=== PATIENT | female | born 1965 | race Caucasian/White ===

== ENCOUNTER → 2017-05-29 | Outpatient (CLI) | payer BC | LOC: RAH 10:39 | PROVIDERS: ATTEND Internal Medicine Medical Oncology | DX: R59.1 Generalized enlarged lymph nodes (principal) | CPT/HCPCS: 76536 ==

== ENCOUNTER → 2017-11-17 | Outpatient (CLI) | payer BC | END | disposition home or self-care (01) | LOC: RAH 11:00 | PROVIDERS: ATTEND Internal Medicine Medical Oncology | DX: Z85.850 Personal history of malignant neoplasm of thyroid (principal); I10 Essential (primary) hypertension | CPT/HCPCS: 76536 ==

== ENCOUNTER → 2018-11-23 | Outpatient (CLI) | payer BC | END | disposition home or self-care (01) | LOC: RAH 12:40 | PROVIDERS: ATTEND Internal Medicine Endocrinology, Diabetes & Metabolism | DX: C73 Malignant neoplasm of thyroid gland (principal) | CPT/HCPCS: 76536 ==

== ENCOUNTER 2018-12-25 05:59 | Day surgery (SDC) | payer BC ==
[~2018-12-25] VITALS: Ht 165.1 cm; Wt 80.7 kg
[~2018-12-25 05:59] MED LIST: CALC600T12 PO; HYDR25TA PO; LEVO88TA4 PO; LISI10TA7 PO; METO25TA6 PO; VITAMIN D
[2018-12-25] MEDS ORDERED: SODIUM CHLORIDE 0.9% 1000ML 1,000 ML IV ONE (06:30)
[2018-12-25 07:34] VITALS: BP 122/86
[2018-12-25] MEDS ORDERED: PROPOFOL 10 MG/ML 20ML VIAL IV ONE (08:31)
[2018-12-25 08:40] VITALS: BP 132/81
[2018-12-25 08:45] VITALS: BP 126/81
[2018-12-25 08:50] VITALS: BP 125/88
== END 2018-12-25 09:00 | disposition home or self-care (01) ==
LOC: DAH 05:59 → ENDO 05:59
PROVIDERS: ATTEND Internal Medicine
DX: Z12.11 Encounter for screening for malignant neoplasm of colon (principal); D12.2 Benign neoplasm of ascending colon; D12.5 Benign neoplasm of sigmoid colon; K57.30 Diverticulosis of large intestine without perforation or abscess without bleeding; K64.0 First degree hemorrhoids; E03.9 Hypothyroidism, unspecified; I10 Essential (primary) hypertension; Z90.710 Acquired absence of both cervix and uterus; Z90.89 Acquired absence of other organs; Z88.1 Allergy status to other antibiotic agents; Z80.0 Family history of malignant neoplasm of digestive organs; Z85.850 Personal history of malignant neoplasm of thyroid; Z79.899 Other long term (current) drug therapy
CPT/HCPCS: 45380; 45385; A4215; A4221; A4222; A4223; A4606; A4615; A4663; J2704; J7030

== ENCOUNTER → 2019-08-23 | Outpatient (CLI) | payer BC | END | disposition home or self-care (01) | LOC: RAH 10:37 | PROVIDERS: ATTEND Internal Medicine Endocrinology, Diabetes & Metabolism | DX: C73 Malignant neoplasm of thyroid gland (principal) ==

== ENCOUNTER → 2023-03-31 | Outpatient (CLI) | payer BC ==
[~2023-03-31] MED LIST changes: +CALC-1125 PO; -CALC600T12 PO; +LISI10TA24 PO; -LISI10TA7 PO
== END | disposition home or self-care (01) ==
LOC: RAH 11:07
PROVIDERS: ATTEND Internal Medicine Endocrinology, Diabetes & Metabolism
DX: C73 Malignant neoplasm of thyroid gland (principal); E04.2 Nontoxic multinodular goiter; Z98.890 Other specified postprocedural states
CPT/HCPCS: 76536

== ENCOUNTER 2024-02-13 12:21 | Emergency (ER) | payer BC ==
[~2024-02-13] VITALS: Ht 165.1 cm; Wt 84.4 kg
--- NOTE | 2024-02-13 12:38 | ERN ---
ED Note History of Present Illness Stated Complaint: LEG PAIN Chief Complaint: Lower Extremity Pain/Injury Time Seen by MD: 12:32 Dictation: PATIENT IS A 58-YEAR-OLD FEMALE HERE WITH PAIN SWELLING AND ECCHYMOSIS TO THE RIGHT CALF AND RIGHT ANTERIOR PROXIMAL TIBIAL AREA ONSET LAST WEEK. SHE STATES SHE WAS ON A STEP SO WHEN SHE FELL ON HER TIBIA AND LOWER LEG CAUSING A SEVERE ABRASION AND THEN THE BRUISING. SHE STATES SHE HAS BEEN ABLE TO AMBULATE WITH PAIN FOR A WEEK, SAW HER PRIMARY CARE DOCTOR TODAY WHO SENT HER TO [facility] [place] TO RULE OUT A FRACTURE VERSUS DVT. SHE DENIES ANY NEED FOR PAIN MEDICATION AT THIS TIME. SHE IS AMBULATORY WITH ANTALGIC GAIT. DISTAL NEUROVASCULAR CMS INTACT. Allergies: Coded Allergies: No Known Drug Allergies (Unverified Allergy, Unknown, 02/13/24) Home Meds Reported Medications [Vitamin D] No Conflict Check 12/24/18 Calcium Carbonate (Calcium) 600 Mg Tablet, 600 MG PO TID, TAB 12/24/18 Lisinopril (Lisinopril) 10 Mg Tablet, 10 MG PO DAILY, TAB 12/24/18 Hydrochlorothiazide (Hydrochlorothiazide) 25 Mg Tablet, 12.5 MG PO DAILY, TAB 12/24/18 Levothyroxine Sodium (Synthroid) 88 Mcg Tablet, 88 MCG PO DAILY, TAB 12/24/18 Metoprolol Tartrate (Metoprolol Tartrate) 25 Mg Tablet, 25 MG PO BID, TAB 12/24/18 Past Medical History Past Medical History: Cancer, Hypertension, Hypothyroid, Other Additional Past Medical Hx: RT BREAST, THYROID CA Surgical History: None PSYCH History: no pertinent psych hx History: Not Applicable RN Note Reviewed/Agreed w/PFSH: Yes Review of System Dictation CONSTITUTIONAL: NEGATIVE EXCEPT FOR HPI HEAD/FACE: NEGATIVE EXCEPT FOR HPI EENT: NEGATIVE EXCEPT FOR HPI RESPIRATORY: NEGATIVE EXCEPT FOR HPI GASTROINTESTINAL/ABDOMINAL: NEGATIVE EXCEPT FOR HPI GENITOURINARY: NEGATIVE EXCEPT FOR HPI MUSCULOSKELETAL: NEGATIVE EXCEPT FOR HPI RIGHT ANTERIOR TIBIAL PAIN SWELLING ECCHYMOSIS INTEGUMENTARY: NEGATIVE EXCEPT FOR HPI NEUROLOGICAL/PSYCH: NEGATIVE EXCEPT FOR HPI HEMATOLOGIC/LYMPHATIC: NEGATIVE EXCEPT FOR HPI ALL SYSTEMS NEGATIVE, EXCEPT NOTED ABOVE. 13 POINT REVIEW OF SYSTEMS ASSESSED AND ALL NEGATIVE EXCEPT FOR ABOVE. Initial Vital Sign VS Vital Signs Date Time Temp Pulse Resp B/P (MAP) Pulse Ox O2 Delivery O2 Flow Rate FiO2 02/13/24 12:26 98.2 86 18 155/94 98 02/13/24 12:36 Room Air* 0 21 Physical Exam Dictation VITAL SIGNS REVIEWED GENERAL APPEARANCE: ALERT, ORIENTED X 3, MILDACUTE DISTRESS, WELL DEVELOPED, NOURISHED. PATIENT REFUSED P.R.N. ANALGESIA HEAD AND FACE: NON-TRAUMATIC. EYES: PERRL, PINK CONJUNCTIVAS, EYELID NO TRAUMA, ANTERIOR CHAMBER WITH ARCUS SENILIS. EARS: PINNAS INTACT AND NO SIGNS OF TRAUMA OR ERYTHEMA EAR CANALS CLEAR AND NO DISCHARGE TM NO ERYTHEMA NOSE: NO DISCHARGE, NO BLEEDING. OROPHARYNX: MOUTH NORMAL, TONGUE PINK, PHARYNX CLEAR,NO ERYTHEMA, TONSILS NO EXUDATES, NO ABSCESSES NOTED, MUCOUS MEMBRANE MOIST NECK: SUPPLE, NON-TENDER, NO THYROMEGALY, NO MASSES, NO JVD, NO BRUITS BREAST:DEFERRED CHEST:NO TENDERNESS, NO CREPITUS, NO PARADOXICAL MOVEMENT, NO RETRACTIONS LUNGS:CLEAR, WELL-VENTILATED, SYMMETRIC, NO RALES, NO WHEEZING, NO RHONCHI, NO STRIDOR, GOOD BREATH SOUNDS BILATERALLY HEART: REGULAR RATE, REGULAR RHYTHM, NO MURMUR, NO GALLOPS VASCULAR: NO PERIPHERAL EDEMA, ABDOMEN: SOFT, POSITIVE BOWEL SOUNDS, NONDISTENDED, NO GUARDING, NONTENDER, NO REBOUND, NO MASSES NO HEPATOMEGALY, NO SPLENOMEGALY, NO LUCERO'S SIGN, NO HERNIAS. RECTAL: DEFERRED GENITAL: DEFERRED NEUROLOGICAL: NORMAL SPEECH, MOTOR FUNCTION INTACT, SENSORY FUNCTION INTACT MUSCULOSKELETAL: NECK NONTENDER, FULL RANGE OF MOTION, BACK NONTENDER, FULL RANGE OF MOTION, EXTREMITIES: TENDER TO RIGHT PROXIMAL TIBIA DISTAL NEUROVASCULAR CMS INTACT RIGHT LEG SKIN: COLOR PINK, DRY, DISTAL PROXIMAL RIGHT TIBIA AND MEDIAL TIBIAL ECCHYMOSIS SWELLING TENDERNESS. LYMPHATIC: DEFERRED Results (Laboratory/Radiology) Laboratory/Radiology 1310, RIGHT TIBIAL X-RAY NEGATIVE THIRTEEN 40 ULTRASOUND DOPPLER RIGHT LEG DEMONSTRATES JETER CYST ONLY, NO DVT Labs Reviewed?: Yes ED Course ED Course Orders Procedure Category Date Status Time Us Venous Doppler US 02/13/24 Resulted Unilateral 12:35 Tibia/Fibula 2vws Rt RAD 02/13/24 Resulted 12:35 Vital Signs Date Time Temp Pulse Resp B/P (MAP) Pulse Ox O2 Delivery O2 Flow Rate FiO2 02/13/24 14:04 98.2 70 16 110/94 98 Room Air* 0 21 02/13/24 12:36 98.2 60 16 100/ 98 Room Air* 0 21 02/13/24 12:26 98.2 86 18 155/94 98 3 40, PATIENT DISCHARGED HOME WITH DIAGNOSIS OF CONTUSION TO RIGHT LOWER EXTREMITY AND JETER CYST. SHE WILL BE GIVEN THE NAME OF DR. RENEE ROE Medical Decision Making MDM MDM: DIFFERENTIAL DIAGNOSIS: HEMATOMA/CONTUSION/DVT/JETER CYST/TIBIAL FRACTURE RATIONALE: TESTS CONSIDERED AND ORDERED SECONDARY TO SHARED DECISION MAKING INCLUDE: ULTRASOUND DOPPLER/RADIOLOGY PREVIOUS OUTSIDE RECORDS REVIEWED: OLD ER VISITS. REVIEWED RISK OF COMPLICATION AND/OR MORBIDITY OR MORTALITY OF PATIENT MANAGEMENT: NONE MEDICATIONS-PER MEDICATION RECONCILIATION NEED FOR HOSPITALIZATION: PATIENT DOES NOT MEET CRITERIA FOR HOSPITALIZATION. SEE NURSE'S NOTES NO NEED FOR EMERGENCY MAJOR/MINOR SURGERY: NO THERE ARE NO SOCIAL CONCERNS WITH THIS PATIENT. PRESCRIPTION DRUG MANAGEMENT NONE, PATIENT REFERRED TO ORTHOPEDIC SURGEON PRESCRIPTIONS WILL INCLUDE SYMPTOMATIC CARE PATIENT'S PRIOR EXTERNAL MEDICAL RECORDS FROM OTHER ER VISITS WERE REVIEWED BY ME INDICATED. PRIOR TESTING AND RESULTS FROM PREVIOUS VISITS WERE REVIEWED. PRIOR TESTS WERE TAKEN INTO ACCOUNT WITH MEDICAL DECISION MAKING AND RESOURCE UTILIZATION, INDEPENDENT HISTORIAN/HISTORIANS WERE USED TO OBTAIN COMPLETE MEDICAL HISTORY. I INDEPENDENTLY INTERPRETED THE TEST THAT WERE PERFORMED, RESULTS WERE REVIEWED BY ME AND CONSIDERED FINDINGS ON RADIOLOGY IF ORDERED. MEDICAL MANAGEMENT AND EXAMINATION INTERPRETATION DISCUSSIONS WERE HAD BY ME WITH OTHER QUALIFIED HEALTHCARE PROFESSIONALS INDICATED FOR THE PATIENT'S CARE. DX & DISP Disposition: Discharge Departure Impression: Primary Impression: Contusion of right lower leg, initial encounter Additional Impressions: Synovial cyst of popliteal space [Jeter], right knee, Fall Condition: Stable Additional Instructions: FOLLOW-UP WITH PRIMARY CARE PROVIDER IN 1 TO 2 DAYS. TAKE MEDICATIONS DIRECTED HERE IN THE EMERGENCY ROOM. OKAY TO CONTINUE HOME MEDICATIONS UNLESS OTHERWISE DISCUSSED DURING YOUR VISIT IN THE EMERGENCY ROOM TODAY. RETURN TO YOUR NEAREST EMERGENCY ROOM IF SYMPTOMS WORSEN OR IF THERE IS NO IMPROVEMENT. CALL 911 IF YOU NEED IMMEDIATE ASSISTANCE. TAKE TYLENOL OR MOTRIN OVE [id number] NEEDED AND IF NO CONTRAINDICATIONS ARE PRESENT. INCREASE ORAL HYDRATION. A WOUND CULTURE OR URINE CULTURE WAS ORDERED HERE IN THE EMERGENCY ROOM DEPARTMENT PLEASE FOLLOW-UP WITH PRIMARY CARE PROVIDER AND ADVISE THEM TO GET REPEAT PORTS FROM OUR FACILITY. IF YOU HAD ANY YON WRAP/SPLINTS THAT WERE APPLIED HERE, PLEASE DO NOT REMOVE THEM UNTIL YOU SEE YOUR PRIMARY CARE OR SPECIALTY. DIET AND ACTIVITY TOLERATED. , FOLLOW UP WITH ORTHOPEDIC SURGEON IN THE NEXT 1-2 DAYS, CALL FOR AN APPOINTMENT. Referrals: PAULETTE MORENO MD (PCP) RENEE ROE MD Time of Disposition: 13:42 I have reviewed the case, and I agree with, Diagnosis and Plan ATTESTATION BY PHYSICIAN I PERFORMED THE SUBSTANTIVE PORTION OF THE VISIT. I HAVE REVIEWED AND PERSONALLY MADE AND APPROVED THE MANAGEMENT PLAN THAT IS DOCUMENTED IN THE NOTE BY MYSELF FOR THE A PP. I ACKNOWLEDGED FOR RESPONSIBILITY FOR THE PATIENT'S MANAGEMENT PLAN. PEG ROB NP Feb 13, 2024 12:38 LANCE HAQ MD Feb 15, 2024 07:42
--- NOTE | 2024-02-13 13:46 | HMCIMG ---
US VENOUS DOPPLER UNILATERAL HISTORY: Pain COMPARISON: None TECHNIQUE: Right lower extremity venous Doppler ultrasound study was performed. FINDINGS: The right common femoral, femoral, popliteal, and posterior tibial veins are visualized. Normal flow with augmentation and compressibilities are demonstrated. Right greater saphenous vein is patent. There is right popliteal Jeter's cyst measuring 5.7 x 1.8 x 2.5 cm. IMPRESSION: 1. No evidence of deep venous thrombosis is seen.
--- NOTE | 2024-02-13 13:51 | HMCIMG ---
TIBIA/FIBULA 2VWS RT HISTORY: Pain COMPARISON: None TECHNIQUE: 4 images of right tibia and fibula were obtained. FINDINGS: There is no acute displaced fracture or dislocation. There is soft tissue swelling. Degenerative changes are seen. IMPRESSION: 1. Findings as described above.
[2024-02-13 14:04] VITALS: BP 110/94; PULSE 70; RESP 16; TEMP 98.2; O2SAT 98
== END 2024-02-13 14:06 | disposition home or self-care (01) ==
LOC: EDH 12:21
DX: S80.11XA Contusion of right lower leg, initial encounter (principal); M71.21 Synovial cyst of popliteal space [Baker], right knee; E03.9 Hypothyroidism, unspecified; I10 Essential (primary) hypertension; Z79.890 Hormone replacement therapy; Z79.899 Other long term (current) drug therapy; W18.39XA Other fall on same level, initial encounter; Y93.89 Activity, other specified; Y92.89 Other specified places as the place of occurrence of the external cause; Y99.8 Other external cause status
CPT/HCPCS: 73590; 93971; 99284